=== PATIENT | female | born 1960 | race Caucasian/White ===

== ENCOUNTER 2017-08-01 15:10 | Outpatient (CLI) | payer OTHER | END 2017-08-01 23:59 | disposition home or self-care (01) | LOC: RAD 15:10 | DX: Z11.1 Encounter for screening for respiratory tuberculosis (principal); I51.7 Cardiomegaly; I77.810 Thoracic aortic ectasia | CPT/HCPCS: 71045 ==

== ENCOUNTER → 2018-01-19 | Outpatient (CLI) | payer OTHER | END | disposition home or self-care (01) | LOC: 64 CT 14:29 | PROVIDERS: ATTEND Family Medicine | DX: M19.071 Primary osteoarthritis, right ankle and foot (principal) | CPT/HCPCS: 73700 ==

== ENCOUNTER 2019-01-22 07:45 | Outpatient (CLI) | payer OTHER ==
[2019-01-22 08:11] LABS: CLARITY,URINE CLEAR (Clear); COLOR,URINE STRAW (Yellow); GLUCOSE, URINE NEGATIVE (Neg); KETONES,URINE NEGATIVE (Neg); LEUKOCYTE ESTERASE ,URINE TRACE (Neg); NITRITES, URINE NEGATIVE (Neg); OCCULT BLOOD,URINE NEGATIVE (Neg); PH,URINE 5.5 (4.8-8.0); PROTEIN,URINE NEGATIVE (Neg); UROBILINOGEN,URINE 0.2 E.U/dL (0.2-1.0)
[2019-01-22 08:12] LABS: BASOPHILS % (AUTO) 1.1 % (0-1); EOSINOPHILS # (AUTO) 0.1 X10'3 (0-0.9); HEMATOCRIT 41.6 % (35.0-45.0); HEMOGLOBIN 14.2 g/dl (12.0-16.0); LYMPHOCYTES # (AUTO) 1.1 X10'3 (1.1-4.8); LYMPHOCYTES % (AUTO) 25.4 % (21-51); MEAN CORPUSCULAR HEMOGLOBIN 30.9 PG (27.0-31.0); MEAN CORPUSCULAR HGB CONC 34.3 g/dL (33.0-36.5); MEAN CORPUSCULAR VOLUME 90.1 FL (78-98); MONOCYTES # (AUTO) 0.3 X10'3 (0-0.9); MONOCYTES % (AUTO) 5.9 % (2-12); NEUTROPHILS # (AUTO) 2.9 X10'3 (1.8-7.7); NEUTROPHILS % (AUTO) 64.6 % (42-75); PLATELET COUNT 226 X10'3 (140-440); RED BLOOD COUNT 4.61 X10'6 (4.20-5.60); RED CELL DISTRIBUTION WIDTH 14.2 % (11.5-14.5); WHITE BLOOD COUNT 4.5 X10'3 (4.5-11.0)
[2019-01-22 08:22] LABS: UA COLLECTION TYPE CLN CATCH MIDSTREAM
[2019-01-22 08:23] LABS: MUCUS STRANDS FEW /LPF (Neg); SQUAMOUS EPITHELIAL CELL,UR FEW /LPF (FEW)
[2019-01-22 08:24] LABS: BACTERIA,URINE FEW /HPF (Neg); RBC,URINE 0-2 /HPF (0-2); WBC,URINE 0-4 /HPF (0-4)
[2019-01-22 08:32] LABS: ALANINE AMINOTRANSFERASE 23 U/L (12-78); ALBUMIN 3.9 G/DL (3.4-5.0); ALKALINE PHOSPHATASE 73 IU/L (46-116); ANION GAP 6 (8-16); ASPARTATE AMINO TRANSFERASE 16 U/L (10-37); BILIRUBIN,TOTAL 0.3 MG/DL (0.1-1.0); BLOOD UREA NITROGEN 17 MG/DL (7-18); CALCIUM 8.8 MG/DL (8.5-10.1); CHLORIDE 106 MMOL/L (99-107); CHOL/HDL RATIO 1.9 (0.00-4.99); CHOLESTEROL 169 MG/DL (0-200); CREATININE 0.74 MG/DL (0.40-0.90); GLUCOSE 104 MG/DL (70-104); HDL CHOLESTEROL 91 MG/DL (35-60); LDL CHOLESTEROL 69 MG/DL (50-100); POTASSIUM 4.6 MMOL/L (3.5-5.1); SODIUM 140 MMOL/L (135-145); TOTAL CARBON DIOXIDE 28.5 MMOL/L (24-32); eGFR 80 ML/MIN
[2019-01-22 08:33] LABS: TRIGLYCERIDES 58 MG/DL (20-135)
== END 2019-01-22 23:59 | disposition home or self-care (01) ==
LOC: LAB 07:45
PROVIDERS: ATTEND Family Medicine
DX: Z00.00 Encounter for general adult medical examination without abnormal findings (principal); R53.83 Other fatigue; I10 Essential (primary) hypertension
CPT/HCPCS: 36415; 80053; 80061; 81001; 84439; 84443; 85025; 87088

== ENCOUNTER 2019-08-14 08:08 | Outpatient (CLI) | payer OTHER ==
[2019-08-14 14:32] LABS: BASOPHILS % (AUTO) 0.9 % (0-1); EOSINOPHILS # (AUTO) 0.1 X10'3 (0-0.9); EOSINOPHILS % (AUTO) 1.4 % (0-6); HEMATOCRIT 40.8 % (35.0-45.0); HEMOGLOBIN 13.8 g/dl (12.0-16.0); LYMPHOCYTES # (AUTO) 1.6 X10'3 (1.1-4.8); LYMPHOCYTES % (AUTO) 31.6 % (21-51); MEAN CORPUSCULAR HEMOGLOBIN 30.3 PG (27.0-31.0); MEAN CORPUSCULAR HGB CONC 33.9 g/dL (33.0-36.5); MEAN CORPUSCULAR VOLUME 89.3 FL (78-98); MEAN PLATELET VOLUME 9.1 FL (7.4-10.4); MONOCYTES # (AUTO) 0.3 X10'3 (0-0.9); MONOCYTES % (AUTO) 5.5 % (2-12); NEUTROPHILS % (AUTO) 60.6 % (42-75); PLATELET COUNT 231 X10'3 (140-440); RED BLOOD COUNT 4.57 X10'6 (4.20-5.60); RED CELL DISTRIBUTION WIDTH 14.2 % (11.5-14.5); WHITE BLOOD COUNT 4.9 X10'3 (4.5-11.0)
[2019-08-14 14:32] LABS: CLARITY,URINE CLEAR (Clear); COLOR,URINE YELLOW (Yellow); GLUCOSE, URINE NEGATIVE (Neg); KETONES,URINE NEGATIVE (Neg); LEUKOCYTE ESTERASE ,URINE TRACE (Neg); NITRITES, URINE NEGATIVE (Neg); OCCULT BLOOD,URINE NEGATIVE (Neg); PROTEIN,URINE NEGATIVE (Neg); UROBILINOGEN,URINE 0.2 E.U/dL (0.2-1.0)
[2019-08-14 14:43] LABS: UA COLLECTION TYPE CLN CATCH MIDSTREAM
[2019-08-14 14:47] LABS: SQUAMOUS EPITHELIAL CELL,UR FEW /LPF (FEW)
[2019-08-14 14:48] LABS: WBC,URINE 0-4 /HPF (0-4)
[2019-08-14 14:50] LABS: RBC,URINE NONE SEEN /HPF (0-2)
[2019-08-14 14:51] LABS: BACTERIA,URINE FEW /HPF (Neg)
[2019-08-14 14:53] LABS: ALANINE AMINOTRANSFERASE 16 U/L (12-78); ALBUMIN 3.9 G/DL (3.4-5.0); ALBUMIN/GLOBULIN RATIO 1.1 (1.1-1.5); ALKALINE PHOSPHATASE 73 IU/L (46-116); ANION GAP 7 (8-16); ASPARTATE AMINO TRANSFERASE 22 U/L (10-37); BILIRUBIN,TOTAL 0.4 MG/DL (0.1-1.0); BLOOD UREA NITROGEN 14 MG/DL (7-18); BUN/CREATININE RATIO 20.9 (6.6-38.0); CALCIUM 9.1 MG/DL (8.5-10.1); CHLORIDE 104 MMOL/L (99-107); CHOLESTEROL 182 MG/DL (0-200); CREATININE 0.67 MG/DL (0.40-0.90); GLUCOSE 98 MG/DL (70-104); HDL CHOLESTEROL 90 MG/DL (35-60); LDL CHOLESTEROL 74 MG/DL (50-100); SODIUM 138 MMOL/L (135-145); TOTAL CARBON DIOXIDE 27.4 MMOL/L (24-32); TOTAL PROTEIN 7.6 G/DL (6.4-8.2); TRIGLYCERIDES 79 MG/DL (20-135); eGFR 89 ML/MIN
== END 2019-08-14 23:59 | disposition home or self-care (01) ==
LOC: LAB 08:08
PROVIDERS: ATTEND Family Medicine
DX: I10 Essential (primary) hypertension (principal); F41.9 Anxiety disorder, unspecified; Z00.00 Encounter for general adult medical examination without abnormal findings
CPT/HCPCS: 36415; 80053; 80061; 81001; 84439; 84443; 85025; 87088

== ENCOUNTER 2019-12-26 11:16 | Outpatient (CLI) | payer BC ==
[2019-12-28 13:29] LABS: THYROID PEROXIDASE AB <9 IU/mL (0-34)
== END 2019-12-26 23:59 | disposition home or self-care (01) ==
LOC: RAD 11:16
PROVIDERS: ATTEND Physician Assistant Medical
DX: E04.2 Nontoxic multinodular goiter (principal); R53.83 Other fatigue
CPT/HCPCS: 36415; 76536; 82306; 86376

== ENCOUNTER 2020-01-23 14:37 | Outpatient (CLI) | payer BC | END 2020-01-23 23:59 | disposition home or self-care (01) | LOC: CARD DIAG 14:37 | PROVIDERS: ATTEND Family Medicine | DX: I08.3 Combined rheumatic disorders of mitral, aortic and tricuspid valves (principal); I65.23 Occlusion and stenosis of bilateral carotid arteries; I10 Essential (primary) hypertension | CPT/HCPCS: 93306; 93880 ==

== ENCOUNTER 2020-03-03 14:40 | Outpatient (CLI) | payer BC | END 2020-03-03 23:59 | disposition home or self-care (01) | LOC: VAS 14:40 | PROVIDERS: ATTEND Physician Assistant | DX: I79.0 Aneurysm of aorta in diseases classified elsewhere (principal) | CPT/HCPCS: 93978 ==